=== PATIENT | male | born 1960 | race Caucasian/White ===

== ENCOUNTER 2016-10-16 17:12 | Emergency (ER) | payer OTHER ==
[~2016-10-16] VITALS: Ht 175.3 cm; Wt 90.7 kg
[~2016-10-16 17:12] MED LIST: ASPIRIN CHILDRE81 MG PO; AZITHROMYCIN250 M1 PO; BACTRIM DS 8001 TAB PO; CHILDREN'S ASPI81 M1 PO; CHLORDIAZEPOXID25 M3 PO; CLOTRIMAZOLE AN1 CRE TOP; FISH OIL CONCEN1 SGL PO; FLEXERIL10 MG PO; Fish Oil PO; GABAPENTIN300 MG PO; GABAPENTIN400 M2 PO; GEMFIBROZIL600 MG PO; GOOD SENSE ASP325 MG PO; INDERAL LA 80MG80 MG PO; LIDOCAINE1 EACH TOP; LIPITOR80 MG PO; LISINOPRIL AND1 TA1 PO; LISINOPRIL20 M1 PO; LISINOPRIL20 MG PO; MELOXICAM15 M1 PO; METFORMIN500 MG PO; MOBIC15 MG PO; MOTRIN600 MG PO; MULTI-DAY VITA1 EACH PO; MULTIVITAMIN1 TAB PO; NAPROSYN 500 M500 MG PO; NORCO 325 MG-51 TAB PO; NYSTOP100000 U/G TOP; PANTOPRAZOLE SO40 MG PO; PERCOCET 325 MG1 TA2 PO; PLAVIX 75MG TAB75 MG PO; PRAVASTATIN SOD40 M2 PO; PRAVASTATIN SOD40 MG PO; PRINIVIL 5MG5 MG PO; PROTONIX 40MG T40 MG PO; TAMSULOSIN HYD0.4 MG PO; TESSALON PERLE100 MG PO; TOBRAMYCIN AND D5 ML OPH; TRAMADOL HCL50 M1 PO; TRAMADOL50 MG PO; TYLENOL TAB 32325 MG PO; ULTRAM(MONOGRAP50 MG PO; VICODIN5-300 PO; VITAMIN B COMPL1 CAP PO; VITAMIN C1000 M1 PO; VITAMIN C500 M1 PO; VITAMIN C500 M3 PO; ZITHROMAX Z-PA250 M1 PO; ZOFRAN 4 MG TABL4 MG PO
[2016-10-16] MEDS ORDERED: PANTOPRAZOLE SO40 M1 PO (17:54)
[2016-10-16] MEDS ORDERED: OXYCODONE-ACET1 EACH PO (17:54)
[2016-10-16] MEDS ORDERED: METFORMIN HCL500 M3 PO (17:54)
--- NOTE | 2016-10-16 17:55 | ED CARDIAC/CP/PALPITATIONS ---
History of Present Illness General Chief Complaint: Chest Pain Stated Complaint: CHEST PAIN, RIGHT ARM NUMBNESS Source: patient Exam Limitations: no limitations Vital Signs & Intake/Output Vital Signs & Intake/Output Vital Signs Date Time Temp Pulse Resp B/P B/P Pulse O2 O2 Flow FiO2 Mean Ox Delivery Rate 10/16 2206 97.3 99 18 123/74 96 Room Air 10/16 2036 98.0 84 18 112/62 97 Room Air 10/16 1829 Room Air 10/16 182 88 109/55 10/16 1807 86 20 137/102 98 Room Air 10/16 1807 86 20 135/95 98 Room Air 10/16 1724 98.1 94 20 121/79 98 Room Air Room Air ED Intake and Output 10/17 0000 10/16 1200 Intake Total Output Total Balance Patient 200 lb Weight Weight Reported by Patient Measurement Method Allergies Coded Allergies: Penicillins (HIVES 01/17/16) Reconcile Medications Albuterol Sulfate (Proair Hfa) 90 MCG HFA.AER.AD 2 PUF INH AD PRN RESPIRATORY (Reported) Aspirin (Children's Aspirin) 81 MG TAB.CHEW 1 TAB PO DAILY HEART/BLOOD ( Reported) Lisinopril 20 MG TABLET 1 TAB PO DAILY BP (Reported) Meloxicam 15 MG TABLET 1 TAB PO DAILY PAIN/INFLAMMATION (Reported) Metformin HCl 500 MG TABLET 1 TAB PO BID DM (Reported) Multivitamin (Multi-Day Vitamins) 1 EACH TABLET 1 TAB PO DAILY SUPPLEMENT ( Reported) Naloxone HCl (Narcan) 4 MG/ACTUATION SPRAY 4 MG MARLA AD PRN OPIOID INDUCED RESP. DEPRESSIO (Reported) Oxycodone HCl/Acetaminophen (Oxycodone-Acetaminophen 5-325) 5 MG-325 MG TABLET 1 TAB PO 4XDAILY PRN PAIN (Reported) Pantoprazole Sodium 40 MG TABLET.DR 1 TAB PO BID GI (Reported) Propranolol HCl (Propranolol HCl ER) 80 MG CAP.SA.24H 1 CAP PO DAILY MIGRAINES (Reported) Triage Note: PT TO ED WITH SUDDEN ONSET OF LEFT CHEST PAIN, WEAKNESS AND LIGHT HEADED, PT STATING 3 DRINKS TODAY, AND "STARTED TO SMOKE AGAIN". Triage Nurses Notes Reviewed? yes Onset: Abrupt Duration: minute(s): (45) Timing: single episode today HPI: This is a 55-year-old male with reported history of acute SC at the age of 28, CVA, TIA, EtOH and polysubstance abuse who presents the chief complaint of central chest pain that started 45 minutes ago while he was driving in his truck. He states he feels short of breath and it hurts to breathe. Denies any radiation of the pain. Denies any nausea vomiting or palpitations. He smells of alcohol and admits to drinking 3 drinks earlier prior to driving today. Denies any illicit drug use. He states that he is very depressed and becomes aggressive when asking further questions regarding his chest pain. Patient reports that he follows up with Dr. Jane in the office. He is unclear what the cardiac catheterization showed an when it was done but according to his friend in the room he ever had a stent placed. (DINA WHEATLEY,ANGEL) Past History Travel History Traveled to [place] past 21 day No Medical History Any Pertinent Medical History? see below for history Neurological: CVA, TIA EENT: NONE Cardiovascular: CAD, hypertension, hyperlipidemia Respiratory: bronchitis Gastrointestinal: erosive gastritis Hepatic: NONE Renal: benign prost hyperplasia Musculoskeletal: chronic back pain (herniated disc) Psychiatric: alcohol dependence, substance abuse, history of suicidal ideation CONVERSION DISORDER Endocrine: NONE Blood Disorders: NONE Cancer(s): NONE COOK DESSERT/Reproductive: NONE Other Medical Hx: h/o alcohol and drug abuse History of MRSA: No History of VRE: No History of CDIFF: No Surgical History Surgical History: hernia repair-umbilical, left wrist surgery left elbow surgery right knee surgery Psychosocial History Who do you live with Significant Other Services at Home None What is your primary language Egyptian Tobacco Use: Current Daily Use Daily Tobacco Use Amount/Type: => 5 Cigarettes daily ETOH Use: alcoholic Illicit Drug Use: denies illicit drug use Family History Family History, If Any: MOTHER (Pt was adopted - does not have family hx available.). Hx Contributory? No (DINA WHEATLEY,ANGEL) Review of Systems Review of Systems Constitutional: Denies: chills, fever. EENTM: Reports: no symptoms. Respiratory: Reports: short of breath. Cardiovascular: Reports: chest pain. GI: Denies: abdominal pain. Genitourinary: Denies: discharge, dysuria, frequency, hematuria. Musculoskeletal: Denies: back pain. Skin: Reports: no symptoms. Neurological/Psychological: Reports: no symptoms. Hematologic/Endocrine: Denies: bruising, bleeding, polyuria, polydipsia. Immunologic/Allergic: Denies: splenectomy. All Other Systems: Reviewed and Negative (ANGEL ARROYO MD) Physical Exam Physical Exam General Appearance: well developed/nourished, alert, awake, anxious, mild distress, obese Head: atraumatic, normal appearance Eyes: Bilateral: normal appearance, PERRL, EOMI. Ears, Nose, Throat: normal pharynx, hearing grossly normal Neck: normal inspection, supple, full range of motion Respiratory: normal breath sounds, chest non-tender, no respiratory distress Cardiovascular: regular rate/rhythm Peripheral Pulses: 2+ radial (R), 2+ radial (L) Gastrointestinal: normal bowel sounds, soft, non-tender Neurologic/Psych: no motor/sensory deficits, awake, alert, oriented x 3 Skin: intact, normal color, warm/dry Core Measures ACS in differential dx? Yes ASA ordered for poss ACS? PRIOR TO ARRIVAL Severe Sepsis Present: No Septic Shock Present: No (ANGEL ARROYO MD) Progress Differential Diagnosis: AMI, aortic dissection, costochondritis, musculoskeletal pain, myocarditis, pericarditis, pneumonia, pneumothorax, pulmonary embolism, unstable angina Plan of Care: Orders Procedure Date/time Status TROPONIN LEVEL 10/16 2114 Complete EKG 10/16 2114 Active Add-on Test (ER Only) 10/16 180 Active Telemetry/Bowl Turner 10/16 1809 Active URINE DRUG SCREEN FOR ER ONLY 10/16 1746 Complete URINALYSIS 10/16 1746 Complete PARTIAL THROMBOPLASTIN TIME 10/16 1745 Complete PROTHROMBIN TIME 10/16 1745 Complete ETHANOL 10/16 1745 Complete D-DIMER 10/16 1745 Complete TROPONIN LEVEL 10/16 1728 Complete COMPREHENSIVE METABOLIC PANEL 10/16 1728 Complete CBC WITHOUT DIFFERENTIAL 10/16 1728 Complete EKG 10/16 1715 Active Laboratory Tests 10/16/16 2040: Troponin I < 0.01 10/16/16 1750: Urine Opiates Screen < 100.00, Methadone Screen < 40, Barbiturate Screen < 60, Ur Phencyclidine Scrn < 6.00, Amphetamines Screen 122, U Benzodiazepines Scrn < 85, Urine Cocaine Screen < 50, Urine Cannabis Screen < 5.00, Urine Color STRAW, Urine Clarity CLEAR, Urine pH 6.5, Ur Specific [place] <= 1.005, Urine Protein NEG, Urine Ketones NEG, Urine Nitrite NEG, Urine Bilirubin NEG, Urine Urobilinogen 0.2, Ur Leukocyte Esterase NEG, Ur Microscopic EXAM NOT REQUIRED, Urine Hemoglobin NEG, Urine Glucose NEG 10/16/16 1745: Anion Gap 15, Estimated GFR > 60, BUN/Creatinine Ratio 15.0, Glucose 103 H, Calcium 9.3, Total Bilirubin 0.4, AST 44, ALT 112 H, Alkaline Phosphatase 73, Troponin I < 0.01, Total Protein 7.3, Albumin 4.3, Globulin 3.0, Albumin/ Globulin Ratio 1.4, PT 8.8 L, INR 0.84 L, APTT < 20 L, D-Dimer 225, CBC w Diff NO MAN DIFF REQ, RBC 4.70, MCV 94.0, MCH 31.4 H, RDW 14.4, MPV 8.4, Gran % 54.1, Lymphocytes % 35.5, Monocytes % 7.7, Eosinophils % 2.3, Basophils % 0.4, Absolute Granulocytes 5.1, Absolute Lymphocytes 3.3, Absolute Monocytes 0.7 H, Absolute Eosinophils 0.2, Absolute Basophils 0, PUBS MCHC 33.4, Serum Alcohol 206.0 10/16/16 1730: Serum Alcohol Cancelled Diagnostic Imaging: Viewed by Me: Radiology Read. Discussed w/RAD: Radiology Read. Initial ED EKG: NSR Rhythm Strip: normal sinus rhythm Hand-Off Endorsed To: MARCO VALDEZ DO Endorsed Time: 1899 Pending: labs (ANGEL ARROYO MD) Departure Departure Disposition: STILL A PATIENT Condition: Stable Clinical Impression Primary Impression: Chest pain Referrals: CHEIKH FLANAGAN MD (PCP/Family) Departure Forms: Customer Survey General Discharge Information (ANGEL ARROYO MD) Departure Comments 10/16/16 10:04 PM The patient has no chest pain in the emergency department. He is awake alert oriented 3 and not ataxic. He has insight into his situation. He consented for a second set of enzymes and his repeat troponin and EKG were unchanged. However he did have pain that was consistent with his prior SC. He was advised to stay for a third set. He refused to do so. He signed out AGAINST MEDICAL ADVICE. He was told not to drive a motor vehicle today. He understood. He will follow-up with Dr. Jane on Wednesday. He will return to the emergency department if worse. He did sign out AGAINST MEDICAL ADVICE (MARCO VALDEZ DO) Critical Care Note Critical Care Note Critical Care Time: non-applicable (DINA WHEATLEY,ANGEL)
[2016-10-16] MEDS ORDERED: PROPRANOLOL HCL80 M2 PO (17:56)
[2016-10-16] MEDS ORDERED: PROAIR HFA8.5 GM INH (17:56)
[2016-10-16] MEDS ORDERED: NARCAN4 MG NAS (17:58)
[2016-10-16 18:06] LABS: ABSOLUTE BASOPHIL COUNT 0 /CUMM (0.0-0.2); ABSOLUTE EOSINOPHIL COUNT 0.2 /CUMM (0.0-0.7); ABSOLUTE GRANULOCYTE CT 5.1 /CUMM (1.4-6.5); ABSOLUTE LYMPH COUNT 3.3 /CUMM (1.2-3.4); ABSOLUTE MONOCYTE COUNT 0.7 /CUMM (0.10-0.60); BASOPHIL % 0.4 % (0.0-2.0); EOSINOPHIL % 2.3 % (0-5); GRANULOCYTE % 54.1 % (42.2-75.2); HEMATOCRIT 44.2 % (42-52); MEAN CORPUSCULAR HGB 31.4 PG (27.0-31.0); MEAN CORPUSCULAR HGB CONC 33.4 G/DL (33.0-37.0); MEAN PLATELET VOLUME 8.4 FL (7.4-10.4); PLATELET COUNT 289 /CUMM (130-400); RBC DISTRIBUTION WIDTH 14.4 % (11.5-14.5); WHITE BLOOD CELL COUNT 9.4 /CUMM (4.8-10.8)
[2016-10-16 18:40] LABS: PT 8.8 SEC (9.4-12.5); PTT < 20 SEC (25-37)
[2016-10-16 22:07] VITALS: BP 123/74
== END 2016-10-16 22:13 | disposition left against medical advice (07) ==
LOC: ERH 17:12
PROVIDERS: Emergency Medicine
DX: R07.89 Other chest pain (principal)
CPT/HCPCS: 80307; 81003; 93005; 93010; 96374; 96375; G0480; J1885

== ENCOUNTER 2017-01-06 00:40 | Emergency (ER) | payer OTHER ==
[~2017-01-06] VITALS: Ht 177.8 cm; Wt 113.4 kg
[~2017-01-06 00:40] MED LIST changes: +METFORMIN HCL500 M3 PO; +NARCAN4 MG NAS; +OXYCODONE-ACET1 EACH PO; +PANTOPRAZOLE SO40 M1 PO; +PROAIR HFA8.5 GM INH; +PROPRANOLOL HCL80 M2 PO
[2017-01-06 00:43] VITALS: BP 145/83
--- NOTE | 2017-01-06 01:05 | ED CARDIAC/CP/PALPITATIONS ---
History of Present Illness General Chief Complaint: ETOH/Drug Related Complaint Stated Complaint: ETOH AND COMBATITIVE Source: patient Exam Limitations: intoxication Vital Signs & Intake/Output Vital Signs & Intake/Output Vital Signs Date Time Temp Pulse Resp B/P B/P Pulse O2 O2 Flow FiO2 Mean Ox Delivery Rate 01/06 0043 97.1 101 20 145/83 97 Room Air Allergies Coded Allergies: Penicillins (HIVES 01/17/16) Reconcile Medications Albuterol Sulfate (Proair Hfa) 90 MCG HFA.AER.AD 2 PUF INH AD PRN RESPIRATORY (Reported) Aspirin (Children's Aspirin) 81 MG TAB.CHEW 1 TAB PO DAILY HEART/BLOOD ( Reported) Lisinopril 20 MG TABLET 1 TAB PO DAILY BP (Reported) Meloxicam 15 MG TABLET 1 TAB PO DAILY PAIN/INFLAMMATION (Reported) Metformin HCl 500 MG TABLET 1 TAB PO BID DM (Reported) Multivitamin (Multi-Day Vitamins) 1 EACH TABLET 1 TAB PO DAILY SUPPLEMENT ( Reported) Naloxone HCl (Narcan) 4 MG/ACTUATION SPRAY 4 MG MARLA AD PRN OPIOID INDUCED RESP. DEPRESSIO (Reported) Oxycodone HCl/Acetaminophen (Oxycodone-Acetaminophen 5-325) 5 MG-325 MG TABLET 1 TAB PO 4XDAILY PRN PAIN (Reported) Pantoprazole Sodium 40 MG TABLET.DR 1 TAB PO BID GI (Reported) Propranolol HCl (Propranolol HCl ER) 80 MG CAP.SA.24H 1 CAP PO DAILY MIGRAINES (Reported) Triage Note: PT BIBA C/O REPRODUCIBLE CHEST WALL PAIN. PER EMS PT HAS BEEN DRINKING TONIGHT, HAVING PSEUDO SYNCOPAL EPISODES, AND COMBATIVE. PT ARRIVES ALERT, AND AGITATED. SECURITY AT BEDSIDE FOR WANDING. Triage Nurses Notes Reviewed? 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 Pain gets worse with deep inspiration and movement. History is limited given the patient's reluctance to provide history. Past History Travel History Traveled to [place] past 21 day No Medical History Any Pertinent Medical History? 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 Hx Contributory? No Review of Systems Review of Systems Constitutional: Reports: no symptoms. EENTM: Reports: no symptoms. Respiratory: Reports: no symptoms. Cardiovascular: Reports: see HPI. GI: Reports: no symptoms. Genitourinary: Reports: no symptoms. Musculoskeletal: Reports: no symptoms. Skin: Reports: no symptoms. Neurological/Psychological: Reports: no symptoms. Hematologic/Endocrine: Reports: no symptoms. Immunologic/Allergic: Reports: no symptoms. All Other Systems: Reviewed and Negative Physical Exam Physical Exam Cardiovascular: SEE BELOW Comments: Gen.: Well-nourished, well-developed, no acute respiratory distress. Appears clinically intoxicated. Head: Normocephalic, atraumatic. Eyes: Normal inspection bilaterally, PERRLA, EOMI Ears: Normal inspection bilaterally Nose: Normal inspection Throat/mouth : Moist mucosa Neck: Supple, full range of motion, no goiter Heart: Regular rate and rhythm, no murmurs rubs or gallops Lungs: Clear to auscultation bilaterally with normal air entry, occasional loose sounding cough Chest: Nontender Back: Normal range of motion Abdomen: Soft, nontender, nondistended, normal bowel sounds Extremities: Normal range of motion grossly, equal radial pulses, no cyanosis clubbing or edema Neurologic: Cranial nerves grossly intact, speech is clear Skin: warm and dry, mild sunburn of the upper chest and arms Psychiatric: Calm, cooperative, no apparent delusions or hallucinations Core Measures ACS in differential dx? No Severe Sepsis Present: No Septic Shock Present: No Progress Differential Diagnosis: acid reflux, musculoskeletal pain, atypical chest pain, gastritis Plan of Care: Orders Procedure Date/time Status Telemetry/Dust Brush Assembler 01/06 105 Active TROPONIN LEVEL 01/06 105 Complete MAGNESIUM 01/06 105 Complete ETHANOL 07/12 0105 Complete CBC WITHOUT DIFFERENTIAL 01/06 105 Complete BASIC METABOLIC PANEL 01/06 105 Complete EKG 01/06 004 Active Laboratory Tests 01/06/17 0126: Anion Gap 15, Estimated GFR > 60, BUN/Creatinine Ratio 15.7, Glucose 105 H, Calcium 9.4, Magnesium 1.7, Troponin I < 0.01, CBC w Diff NO MAN DIFF REQ, RBC 4.49 L, MCV 98.2 H, MCH 32.6 H, RDW 14.9 H, MPV 7.3 L, Gran % 46.1, Lymphocytes % 41.4, Monocytes % 9.3, Eosinophils % 2.5, Basophils % 0.7, Absolute Granulocytes 4.0, Absolute Lymphocytes 3.6 H, Absolute Monocytes 0.8 H, Absolute Eosinophils 0.2, Absolute Basophils 0.1, PUBS MCHC 33.2, Serum Alcohol 256.0 CXR Impression: PATIENT: SIERRA THOMPSON PRESENT AGE: 56 PATIENT ACCOUNT NO: [id number] : 60 LOCATION: [facility] ORDERING PHYSICIAN: MARCO LEONARDO MD SERVICE DATE: 01/06/17 EXAM TYPE: RAD - XRY-CHEST XRAY, PA AND LATERAL EXAMINATION: XR CHEST CLINICAL INFORMATION: Cough , chest pain, dyspnea. COMPARISON: 03/15/2016 TECHNIQUE: 2 views of the chest were obtained. FINDINGS: The lungs are well expanded. There is no focal consolidation, edema, or effusion. No pneumothorax. The cardiomediastinal silhouette is within normal limits. No acute osseous abnormality. DISH. IMPRESSION: No acute pulmonary findings. DICTATED BY: SUSAN LÓPEZ MD DATE /TIME DICTATED:01/06/17536 LITHOGRAPH PRESS FEEDER:SINA DATE/TIME TRANSCRIBED: 01/06/17536 CONFIDENTIAL, DO NOT COPY WITHOUT APPROPRIATE AUTHORIZATION. < Electronically signed in Other Vendor System> SIGNED BY: SUSAN LÓPEZ MD 01/06/17 0546 Initial ED EKG: NSR, no ST T wave changes Prior EKG: unchanged Comments: 01/06/2017 6:26:09 AM patient has slept during the majority of his emergency department stay. Given the description of the patient's pain and the EKG and troponin, I do not feel this is an acute coronary syndrome or unstable angina. I feel likely stable for outpatient management. His primary care physician and/ or housekeeping staff. Departure Departure Disposition: HOME OR SELF CARE Condition: Stable Clinical Impression Primary Impression: Chest pain Qualifiers: Chest pain type: unspecified Qualified Code: R07.9 - Chest pain, unspecified Secondary Impressions: Alcoholic intoxication Qualifiers: Complication of substance-induced condition: uncomplicated Qualified Code: F10.920 - Alcohol use, unspecified with intoxication, uncomplicated Referrals: CHEIKH FLANAGAN MD (PCP/Family) Additional Instructions: Try to cut down on your alcohol use. Follow-up with your primary care doctor or housekeeping staff this week for reevaluation. Consider an alcohol detox program. Return if any concerns or sudden worsening. Departure Forms: Customer Survey General Discharge Information Critical Care Note Critical Care Note Critical Care Time: non-applicable
[2017-01-06 01:35] LABS: ABSOLUTE BASOPHIL COUNT 0.1 /CUMM (0.0-0.2); ABSOLUTE EOSINOPHIL COUNT 0.2 /CUMM (0.0-0.7); ABSOLUTE LYMPH COUNT 3.6 /CUMM (1.2-3.4); ABSOLUTE MONOCYTE COUNT 0.8 /CUMM (0.10-0.60); BASOPHIL % 0.7 % (0.0-2.0); EOSINOPHIL % 2.5 % (0-5); GRANULOCYTE % 46.1 % (42.2-75.2); HEMATOCRIT 44.1 % (42-52); MEAN CORPUSCULAR HGB 32.6 PG (27.0-31.0); MEAN CORPUSCULAR HGB CONC 33.2 G/DL (33.0-37.0); MEAN CORPUSCULAR VOLUME 98.2 FL (80.0-94.0); MEAN PLATELET VOLUME 7.3 FL (7.4-10.4); PLATELET COUNT 307 /CUMM (130-400); RBC DISTRIBUTION WIDTH 14.9 % (11.5-14.5); RED BLOOD CELL CT 4.49 /CUMM (4.70-6.10); WHITE BLOOD CELL COUNT 8.8 /CUMM (4.8-10.8)
--- NOTE | 2017-01-06 05:46 | RADIOLOGY REPORT ---
EXAMINATION: XR CHEST CLINICAL INFORMATION: Cough, chest pain, dyspnea. COMPARISON: 03/15/2016 TECHNIQUE: 2 views of the chest were obtained. FINDINGS: The lungs are well expanded. There is no focal consolidation, edema, or effusion. No pneumothorax. The cardiomediastinal silhouette is within normal limits. No acute osseous abnormality. DISH. IMPRESSION: No acute pulmonary findings.
== END 2017-01-06 06:42 ==
LOC: ERH 00:40
PROVIDERS: Emergency Medicine
DX: R07.89 Other chest pain (principal); F10.129 Alcohol abuse with intoxication, unspecified
CPT/HCPCS: 93005; 93010; G0480

== ENCOUNTER 2017-10-29 18:37 | Emergency (ER) | payer OTHER ==
[~2017-10-29] VITALS: Ht 182.9 cm; Wt 113.4 kg
[~2017-10-29 18:37] MED LIST changes: +ATORVASTATIN CA40 M1 PO; +FOLIC ACID1 M1 PO; +GABAPENTIN300 M2 PO; +IBUPROFEN600 M1 PO; -MULTI-DAY VITA1 EACH PO; +MULTI-VITAMIN1 EACH PO; +PRAVACHOL40 M1 PO; +ULTRAM50 M1 PO; +VITAMIN B-1100 MG PO; +VITAMIN B-12500 MC2 PO; +VITAMIN C500 M6 PO
[2017-10-29 18:52] LABS: ABSOLUTE BASOPHIL COUNT 0.1 /CUMM (0.0-0.2); ABSOLUTE EOSINOPHIL COUNT 0.5 /CUMM (0.0-0.7); ABSOLUTE GRANULOCYTE CT 6.2 /CUMM (1.4-6.5); ABSOLUTE LYMPH COUNT 2.9 /CUMM (1.2-3.4); ABSOLUTE MONOCYTE COUNT 0.8 /CUMM (0.10-0.60); BASOPHIL % 0.9 % (0.0-2.0); EOSINOPHIL % 4.4 % (0-5); GRANULOCYTE % 58.8 % (42.2-75.2); HEMATOCRIT 39.8 % (42-52); MEAN CORPUSCULAR HGB 33.4 PG (27.0-31.0); MEAN CORPUSCULAR HGB CONC 33.4 G/DL (33.0-37.0); MEAN PLATELET VOLUME 7.9 FL (7.4-10.4); PLATELET COUNT 266 /CUMM (130-400); RBC DISTRIBUTION WIDTH 13.7 % (11.5-14.5); RED BLOOD CELL CT 3.98 /CUMM (4.70-6.10); WHITE BLOOD CELL COUNT 10.5 /CUMM (4.8-10.8)
[2017-10-29 19:17] LABS: PT 10.4 SEC (9.4-12.5); PTT 24 SEC (25-37)
--- NOTE | 2017-10-29 19:21 | ED CARDIAC/CP/PALPITATIONS ---
See Addendum History of Present Illness General Chief Complaint: General Adult Stated Complaint: PULLED OUT OF CAR, ?SEIZURE, UNRESPONSIVE Source: patient, old records, friend Exam Limitations: intoxication Vital Signs & Intake/Output Vital Signs & Intake/Output Vital Signs Date Time Temp Pulse Resp B/P B/P Pulse O2 O2 Flow FiO2 Mean Ox Delivery Rate 10/30 2227 98.1 82 18 102/63 96 Room Air 10/29 2106 98.0 93 16 100/60 96 Room Air 10/29 2004 97.7 97 16 90/50 95 Room Air 10/29 1915 97.0 100 16 84/60 94 Room Air 10/29 1900 96.5 106 16 78/50 98 Room Air ED Intake and Output 10/30 0000 10/29 1200 Intake Total 1000 Output Total Balance 1000 Intake, IV 1000 Patient 250 lb Weight Allergies Coded Allergies: Penicillins (HIVES 01/17/16) Reconcile Medications Ascorbate Calcium (Vitamin C) 500 MG TABLET 1 TAB PO DAILY SUPPLEMENT ( Reported) Aspirin (Children's Aspirin) 81 MG TAB.CHEW 1 TAB PO DAILY HEART/BLOOD ( Reported) Cyanocobalamin (Vitamin B-12) (Vitamin B-12) 500 MCG TABLET 1 TAB PO DAILY SUPPLEMENT (Reported) Folic Acid 1 MG TABLET 1 TAB PO DAILY SUPPLEMENT (Reported) Gabapentin 400 MG CAPSULE 1 CAP PO TID SEIZURES/MOOD/NERVE PAIN (Reported) Lisinopril 20 MG TABLET 1 TAB PO DAILY BP (Reported) Metformin HCl 500 MG TABLET 1 TAB PO BID DM (Reported) Multivitamin (Multi-Vitamin Daily) 1 EACH TABLET 1 TAB PO DAILY SUPPLEMENT ( Reported) Pantoprazole Sodium 40 MG TABLET.DR 1 TAB PO BID GI (Reported) Pravastatin Sodium (Pravachol) 40 MG TABLET 1 TAB PO DAILY CHOLESTEROL ( Reported) Propranolol HCl (Propranolol HCl ER) 80 MG CAP.SA.24H 1 CAP PO DAILY MIGRAINES (Reported) Triage Note: BIBA BY CAR FROM HOME, WITH FRIEND, UNRESPONSIVE, LIFTED OUT OF CAR, UNESPONSIVE ON ARRIVAL, BUT CURRENTLY OPENING EYES. PMH: SEIZURES, CVA. Triage Nurses Notes Reviewed? yes Onset: Abrupt Duration: minute(s): Timing: single episode today Quality/Severity: moderate HPI: 56yo male with hx of CVA/TIA, CAD, HTN, seizures, alcoholism presents to ED following unresponsive episode. Patient arrived in car with his friend, initially not responding however then openned his eyes. Patient's friend states that they were out at a restaurant when he began to complain of chest pain and clutched his chest. She states that he was drooling and acting odd so she trudi him here. Patient reports substernal chest pain at this time. HPI is limited d/t to patient's intoxication. Patient admits to drinking alcohol today however does not know how much. He also reports numbness of left arm for the past "few days". He denies drug use, fall or head trauma, headache. (Karley Carter) Past History Travel History Traveled to [place] past 21 day No Medical History Any Pertinent Medical History? see below for history Neurological: CVA, TIA EENT: NONE Cardiovascular: CAD, hypertension, hyperlipidemia Respiratory: bronchitis Gastrointestinal: erosive gastritis Hepatic: NONE Renal: benign prost hyperplasia Musculoskeletal: chronic back pain (herniated disc) Psychiatric: alcohol dependence, substance abuse, history of suicidal ideation CONVERSION DISORDER Endocrine: NONE Blood Disorders: NONE Cancer(s): NONE MANAGER KNOWLEDGE/Reproductive: NONE Other Medical Hx: h/o alcohol and drug abuse History of MRSA: No History of VRE: No History of CDIFF: No Surgical History Surgical History: hernia repair-umbilical, left wrist surgery left elbow surgery right knee surgery Psychosocial History Who do you live with Significant Other Services at Home None What is your primary language Maltese Tobacco Use: UN ETOH Use: occasional use Family History Family History, If Any: MOTHER (Pt was adopted - does not have family hx available.). Hx Contributory? No (Karley Carter) Review of Systems Review of Systems Constitutional: Reports: see HPI. EENTM: Reports: no symptoms. Respiratory: Reports: no symptoms. Cardiovascular: Reports: see HPI. GI: Reports: no symptoms. Genitourinary: Reports: no symptoms. Musculoskeletal: Reports: no symptoms. Skin: Reports: no symptoms. Neurological/Psychological: Reports: see HPI. Hematologic/Endocrine: Reports: no symptoms. Immunologic/Allergic: Reports: no symptoms. All Other Systems: Reviewed and Negative (Karley Carter) Physical Exam Physical Exam General Appearance: well developed/nourished, awake, intoxicated Head: atraumatic, normal appearance Eyes: Bilateral: normal appearance, PERRL, EOMI. Ears, Nose, Throat: normal pharynx, hearing grossly normal Neck: normal inspection, supple, full range of motion Respiratory: normal breath sounds, chest non-tender, no respiratory distress, lungs clear Cardiovascular: normal peripheral pulses, tachycardia Peripheral Pulses: 2+ radial (R), 2+ radial (L) Gastrointestinal: normal bowel sounds, soft, non-tender, no organomegaly Back: normal inspection, normal range of motion Neurologic/Psych: awake, alert, oriented x 3, neurologic exam is limited at this time d/t patient intoxication. facial symmetry is intact, no facial droop. PAtient reports diminished sensation to left arm. Skin: intact, normal color, warm/dry Core Measures ACS in differential dx? Yes CVA/TIA Diagnosis No Sepsis Present: No Sepsis Focused Exam Completed? No (Alicia OLMOS,Karley Renteria) Progress Differential Diagnosis: AMI, atrial fibrillation, CHF/pulm edema, costochondritis, myocarditis, pericarditis, pneumonia, pneumothorax, pulmonary embolism, unstable angina, ALCOHOL INTOXICATION, DRUG INTOXICATION, CVA/TIA Plan of Care: Orders Procedure Date/time Status TROPONIN LEVEL 10/29 2144 Complete EKG 10/29 2144 Active Telemetry/Compliance Tester 10/29 2140 Active Add-on Test (ER Only) 10/29 1854 Active PARTIAL THROMBOPLASTIN TIME 10/29 1844 Complete PROTHROMBIN TIME 10/29 1844 Complete PROLACTIN 10/29 1844 Complete URINE DRUG SCREEN FOR ER ONLY 10/29 1840 Complete URINALYSIS 10/29 1840 Complete ACETOMINOPHEN 10/29 1840 Complete TROPONIN LEVEL 10/29 1840 Complete SALICYLATE 10/29 1840 Complete MAGNESIUM 10/29 1840 Complete ETHANOL 10/29 1840 Complete COMPREHENSIVE METABOLIC PANEL 10/29 1840 Complete CBC WITHOUT DIFFERENTIAL 10/29 1840 Complete EKG 10/29 1840 Active Laboratory Tests 10/29/17 2200: Troponin I < 0.01 10/29/17 1850: Urine Opiates Screen < 100, Methadone Screen < 40, Barbiturate Screen < 60, Ur Phencyclidine Scrn < 6.00, Amphetamines Screen < 100, U Benzodiazepines Scrn < 85, Urine Cocaine Screen < 50, Urine Cannabis Screen 13.00, Urine Color YEL, Urine Clarity CLEAR, Urine pH 6.0, Ur Specific Hedley <= 1.005, Urine Protein NEG, Urine Ketones NEG, Urine Nitrite NEG, Urine Bilirubin NEG, Urine Urobilinogen 0.2, Ur Leukocyte Esterase SMALL H, Ur Microscopic SEDIMENT EXAMINED, Urine RBC 1-3, Urine Hemoglobin SMALL H, Urine Glucose NEG 10/29/171844: Anion Gap 17 H, Estimated GFR > 60, BUN/Creatinine Ratio 14.0, Glucose 123 H, Calcium 8.9, Magnesium 1.6, Total Bilirubin 0.7, AST 32, ALT 48, Alkaline Phosphatase 64, Troponin I < 0.01, Total Protein 6.9, Albumin 4.3, Globulin 2.6, Albumin/Globulin Ratio 1.7, Prolactin 18.8 H, PT 10.4, INR 0.95, APTT 24 L, CBC w Diff NO MAN DIFF REQ, RBC 3.98 L, MCV 100.0 H, MCH 33.4 H, MCHC 33.4, RDW 13.7, MPV 7.9, Gran % 58.8, Lymphocytes % 27.8, Monocytes % 8.1, Eosinophils % 4.4, Basophils % 0.9, Absolute Granulocytes 6.2, Absolute Lymphocytes 2.9, Absolute Monocytes 0.8 H, Absolute Eosinophils 0.5, Absolute Basophils 0.1, Salicylates < 1.0, Acetaminophen < 10.0 L, Serum Alcohol 320.0 Patient hypotensive, receiving IV fluids. On second liter. Patient's blood alcohol level is currently 320. HPI exam is limited due to his current intoxication. Head CT scan is within normal limits, no acute abnormality. Patient's EKG is in sinus tachycardia without acute changes. Troponin enzyme is negative. Will obtain repeat EKG and troponin for further evaluation of acute coronary syndrome. Chest x-ray is within normal limits. Repeat EKG is unchanged from prior study. Repeat troponin enzyme is negative. The patient was signed out to Dr. Washington pending clinical sobriety. Diagnostic Imaging: Viewed by Me: Radiology Read, CT Scan. Discussed w/RAD: Radiology Read, CT Scan. Radiology Impression: PATIENT: SIERRA THOMPSON PRESENT AGE: 56 PATIENT ACCOUNT NO: [id number] : 60 LOCATION: [facility] ORDERING PHYSICIAN: Karley OLMOS SERVICE DATE: 10/29/17 EXAM TYPE: CAT - CT HEAD WO IV CONTRAST EXAMINATION: CT HEAD WITHOUT CONTRAST CLINICAL INFORMATION: Evaluate for intracranial hemorrhage. Altered mental status. Left upper extremity numbness. COMPARISON: CT head 04/23/2017. TECHNIQUE : Contiguous axial imaging was performed from the skull base to vertex without intravenous administration of contrast. DLP: 628.26 mGy-cm FINDINGS: There is no acute intracranial hemorrhage or abnormal extra-axial collection. No intracranial mass effect or midline shift. Lateral and third ventricles are normal. No hydrocephalus. Flores-white matter differentiation is preserved and there is no evidence of acute territorial infarct. The calvarium and skull base are intact. Mastoid air cells and middle ear cavities are well aerated. Visualized paranasal sinuses are well-aerated with exception of a retention cyst within the right maxillary sinus. IMPRESSION: Unremarkable CT scan of the head. No evidence of acute territorial infarct or hemorrhage. DICTATED BY: Joaquin Cortez MD DATE/TIME DICTATED:10/29/172056 WARP TRUCKER:SINA DATE/ TIME TRANSCRIBED:10/29/172056 CONFIDENTIAL, DO NOT COPY WITHOUT APPROPRIATE AUTHORIZATION. <Electronically signed in Other Vendor System> SIGNED BY: Joaquin Cortez MD 10/29/172100 CXR Impression: PATIENT: SIERRA THOMPSON PRESENT AGE: 56 PATIENT ACCOUNT NO: [id number] : 60 LOCATION: [facility] ORDERING PHYSICIAN: Karley OLMOS SERVICE DATE: 10/29/17 EXAM TYPE: RAD - XRY-PORTABLE CHEST XRAY EXAMINATION: XR PORTABLE CHEST CLINICAL INFORMATION: Chest pain COMPARISON: 08/20/2017 TECHNIQUE: Portable frontal view of the chest was obtained. FINDINGS: Cardiac leads overlie the chest. The lungs are well expanded. There is no focal consolidation, edema, or effusion. No pneumothorax. The cardiomediastinal silhouette is within normal limits. No acute osseous abnormality. IMPRESSION: No acute pulmonary findings. DICTATED BY: Lars Ortiz MD DATE/TIME DICTATED:10/29/172158 WARP TRUCKER:SINA DATE/ TIME TRANSCRIBED:10/29/172158 CONFIDENTIAL, DO NOT COPY WITHOUT APPROPRIATE AUTHORIZATION. <Electronically signed in Other Vendor System> SIGNED BY: Lars Ortiz MD 10/29/172202 Initial ED EKG: SINUS TACHYCARDIA @104BPM, NONSPECIFIC ST CHANGES Prior EKG: unchanged (08/21/17) Repeat EKG: unchanged Hand-Off Endorsed To: Felix WHEATLEY,Usman Cardenas Endorsed Time: 2300 Pending: other (CLINICAL SOBRIETY) (Karley Carter) Departure Departure Disposition: STILL A PATIENT Condition: Stable Clinical Impression Primary Impression: Chest pain Qualifiers: Chest pain type: unspecified Qualified Code: R07.9 - Chest pain, unspecified Secondary Impressions: Alcohol intoxication Qualifiers: Complication of substance-induced condition: uncomplicated Qualified Code: F10.920 - Alcohol use, unspecified with intoxication, uncomplicated Referrals: Claudia Whipple APRN (PCP/Family) Departure Forms: Customer Survey General Discharge Information (Karley Carter) PA/[employer] Co-Sign Statement Statement: ED Attending supervision documentation- [] I saw and evaluated the patient. I have also reviewed all the pertinent lab results and diagnostic results. I agree with the findings and the plan of care as documented in the PA's/[employer]'s documentation. [x] I have reviewed the ED Record and agree with the PA's/[employer]'s documentation. [] Additions or exceptions (if any) to the PAs/[employer]'s note and plan are summarized below: [] (Felix WHEATLEY,Usman Cardenas) Critical Care Note Critical Care Note Critical Care Time: non-applicable (Karley Carter)
--- NOTE | 2017-10-29 21:01 | CT SCAN REPORT ---
EXAMINATION: CT HEAD WITHOUT CONTRAST CLINICAL INFORMATION: Evaluate for intracranial hemorrhage. Altered mental status. Left upper extremity numbness. COMPARISON: CT head 04/23/2017. TECHNIQUE: Contiguous axial imaging was performed from the skull base to vertex without intravenous administration of contrast. DLP: 628.26 mGy-cm FINDINGS: There is no acute intracranial hemorrhage or abnormal extra-axial collection. No intracranial mass effect or midline shift. Lateral and third ventricles are normal. No hydrocephalus. Flores-white matter differentiation is preserved and there is no evidence of acute territorial infarct. The calvarium and skull base are intact. Mastoid air cells and middle ear cavities are well aerated. Visualized paranasal sinuses are well-aerated with exception of a retention cyst within the right maxillary sinus. IMPRESSION: Unremarkable CT scan of the head. No evidence of acute territorial infarct or hemorrhage.
--- NOTE | 2017-10-29 22:03 | RADIOLOGY REPORT ---
EXAMINATION: XR PORTABLE CHEST CLINICAL INFORMATION: Chest pain COMPARISON: 08/20/2017 TECHNIQUE: Portable frontal view of the chest was obtained. FINDINGS: Cardiac leads overlie the chest. The lungs are well expanded. There is no focal consolidation, edema, or effusion. No pneumothorax. The cardiomediastinal silhouette is within normal limits. No acute osseous abnormality. IMPRESSION: No acute pulmonary findings.
[2017-10-30 02:39] VITALS: BP 108/69
== END 2017-10-30 03:43 | disposition short-term general hospital (02) ==
LOC: ERH 18:37
PROVIDERS: Physician Assistant
DX: R07.9 Chest pain, unspecified (principal); F10.129 Alcohol abuse with intoxication, unspecified; H53.8 Other visual disturbances; I10 Essential (primary) hypertension
CPT/HCPCS: 71045; 80307; 81001; 93005; 93010; 96361; 96374; 99291; G0480; J1885

== ENCOUNTER 2017-12-24 19:41 | Emergency (ER) | payer OTHER ==
--- NOTE | 2017-12-24 19:48 | ED AMS/SEIZURE/WEAK/DIZZY ---
History of Present Illness General Chief Complaint: Seizure Stated Complaint: POSSIBLE SEIZURE Source: patient, EMS Exam Limitations: no limitations Vital Signs & Intake/Output Vital Signs & Intake/Output Vital Signs Date Time Temp Pulse Resp B/P B/P Pulse O2 O2 Flow FiO2 Mean Ox Delivery Rate 12/246 98.2 96 18 126/71 99 Room Air 12/24 2001 Room Air 12/247 97.7 100 20 117/72 97 Room Air ED Intake and Output 12/25 0000 12/24 1200 Intake Total 1000 Output Total Balance 1000 Intake, IV 1000 Allergies Coded Allergies: Penicillins (HIVES 01/17/16) Reconcile Medications Ascorbate Calcium (Vitamin C) 500 MG TABLET 1 TAB PO DAILY SUPPLEMENT ( Reported) Aspirin (Children's Aspirin) 81 MG TAB.CHEW 1 TAB PO DAILY HEART/BLOOD ( Reported) Cyanocobalamin (Vitamin B-12) (Vitamin B-12) 500 MCG TABLET 1 TAB PO DAILY SUPPLEMENT (Reported) Folic Acid 1 MG TABLET 1 TAB PO DAILY SUPPLEMENT (Reported) Gabapentin 400 MG CAPSULE 1 CAP PO TID SEIZURES/MOOD/NERVE PAIN (Reported) Lisinopril 20 MG TABLET 1 TAB PO DAILY BP (Reported) Metformin HCl 500 MG TABLET 1 TAB PO BID DM (Reported) Multivitamin (Multi-Vitamin Daily) 1 EACH TABLET 1 TAB PO DAILY SUPPLEMENT ( Reported) Pantoprazole Sodium 40 MG TABLET.DR 1 TAB PO BID GI (Reported) Pravastatin Sodium (Pravachol) 40 MG TABLET 1 TAB PO DAILY CHOLESTEROL ( Reported) Propranolol HCl (Propranolol HCl ER) 80 MG CAP.SA.24H 1 CAP PO DAILY MIGRAINES (Reported) Triage Nurses Notes Reviewed? yes Onset: Abrupt Duration: minute(s): Timing: recent history Injury Environment: restaurant Severity: moderate Modifying Factors: Improves With: rest. Associated Symptoms: "Now I'm fine" HPI: 57 yo gentleman h/o seizure disorder, recently discharged from [facility], on steroids for an infection, presents after a seizure. Per the medics, "He was at a restaurant, and had a grand mal tonic clonic seizure... lasted about 8 minutes.... He had been drinking earlier today." He did not hit his head. He shares that he has been taking all of his medications. He denies drinking or drugs. He notes right sided reproducible chest wall pain. Past History Medical History Any Pertinent Medical History? 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 Hx Contributory? No Review of Systems Review of Systems Constitutional: Reports: no symptoms. EENTM: Reports: no symptoms. Respiratory: Reports: no symptoms. Cardiovascular: Reports: no symptoms. GI: Reports: no symptoms. Genitourinary: Reports: no symptoms. Musculoskeletal: Reports: no symptoms. Skin: Reports: no symptoms. Neurological/Psychological: Reports: no symptoms. Hematologic/Endocrine: Reports: no symptoms. Immunologic/Allergic: Reports: no symptoms. All Other Systems: Reviewed and Negative Physical Exam Physical Exam General Appearance: well developed/nourished, no apparent distress Comments: Review of Systems - except as otherwise noted in HPI Physical Exam Physical Exam General Appearance: well developed/nourished, no apparent distress Head: atraumatic, normal appearance Eyes: Bilateral: normal appearance. Ears, Nose, Throat: normal pharynx, normal ENT inspection Neck: normal inspection, supple, full range of motion Respiratory: normal breath sounds, chest mild tenderness at right lateral rib cage, no respiratory distress, quiet respiration, lungs clear Cardiovascular: regular rate/rhythm Gastrointestinal: normal bowel sounds, soft, non-tender, no organomegaly Back: normal inspection, normal range of motion Extremities: normal inspection, normal capillary refill, normal range of motion, no edema Neurologic/Psych: no motor/sensory deficits, awake, alert, oriented x 3 Skin: intact, normal color, warm/dry Core Measures ACS in differential dx? No CVA/TIA Diagnosis No Sepsis Present: No Sepsis Focused Exam Completed? No Progress Differential Diagnosis: seizure vs alcohol induced seizure vs pseudoseizure vs other. Plan of Care: Orders Procedure Date/time Status URINE DRUG SCREEN FOR ER ONLY 12/24 1949 Complete TROPONIN LEVEL 12/24 1949 Complete PROLACTIN 12/24 1949 Complete LIPASE 12/24 1949 Complete HEPATIC FUNCTION PANEL 12/24 1949 Complete ETHANOL 12/24 1949 Complete CBC WITHOUT DIFFERENTIAL 12/24 1949 Complete BASIC METABOLIC PANEL 12/24 1949 Complete AMYLASE 12/24 1949 Complete EKG 12/24 1949 Active Laboratory Tests 12/24/172024: Serum Alcohol 242.0 12/24/172024: Anion Gap 15, Estimated GFR > 60, BUN/Creatinine Ratio 9.1, Glucose 105 H, Calcium 8.8, Total Bilirubin 0.3, Direct Bilirubin 0.2, AST 33, ALT 58, Alkaline Phosphatase 58, Troponin I < 0.01, Total Protein 6.7, Albumin 4.1, Amylase 121 H, Lipase 262, Prolactin 16.4, CBC w Diff NO MAN DIFF REQ, RBC 3.83 L, MCV 101.1 H, MCH 34.5 H, MCHC 34.1, RDW 14.2, MPV 7.3 L, Gran % 55.3, Lymphocytes % 31.6, Monocytes % 11.1 H, Eosinophils % 1.4, Basophils % 0.6, Absolute Granulocytes 3.6, Absolute Lymphocytes 2.1, Absolute Monocytes 0.7 H, Absolute Eosinophils 0.1, Absolute Basophils 0, Urine Opiates Screen < 100, Methadone Screen < 40, Barbiturate Screen < 60, Ur Phencyclidine Scrn < 6.00, Amphetamines Screen < 100, U Benzodiazepines Scrn < 85, Urine Cocaine Screen < 50, Urine Cannabis Screen < 5.00 Diagnostic Imaging: Viewed by Me: Radiology Read. Discussed w/RAD: Radiology Read. CXR Impression: PATIENT: SIERRA THOMPSON PRESENT AGE: 57 PATIENT ACCOUNT NO: [id number] : 60 LOCATION: [facility] ORDERING PHYSICIAN: Usman Washington MD SERVICE DATE: 12/24/17 EXAM TYPE: RAD - XRY-PORTABLE CHEST XRAY EXAMINATION: XR PORTABLE CHEST CLINICAL INFORMATION: Seizures. COMPARISON: Chest x-ray 10/29/2017 TECHNIQUE: Portable frontal view of the chest was obtained. 7:56 PM FINDINGS: Lungs are clear. No pulmonary vascular congestion. There is no pleural effusion. The heart size is normal. The cardiac and mediastinal contours are normal. There are calcifications of the thoracic aorta. There are multilevel degenerative changes of dorsal spine. IMPRESSION: Unremarkable examination. DICTATED BY: Horacio Kerns MD DATE/TIME DICTATED:12/24/172024 CAD MANAGER:SINA DATE/TIME TRANSCRIBED:12/24/172024 CONFIDENTIAL, DO NOT COPY WITHOUT APPROPRIATE AUTHORIZATION. <Electronically signed in Other Vendor System> SIGNED BY: Horacio Kerns MD 12/24/172028 Initial ED EKG: sinus, no acute changes. Departure Departure Disposition: HOME OR SELF CARE Condition: Stable Clinical Impression Primary Impression: Seizure Secondary Impressions: Alcohol intoxication Referrals: Claudia Whipple APRN (PCP/Family) Departure Forms: Customer Survey General Discharge Information Comments pt expressed wish to go home.... he is going home in the company of his family. Close follow up advised.
--- NOTE | 2017-12-24 20:29 | RADIOLOGY REPORT ---
EXAMINATION: XR PORTABLE CHEST CLINICAL INFORMATION: Seizures. COMPARISON: Chest x-ray 10/29/2017 TECHNIQUE: Portable frontal view of the chest was obtained. 7:56 PM FINDINGS: Lungs are clear. No pulmonary vascular congestion. There is no pleural effusion. The heart size is normal. The cardiac and mediastinal contours are normal. There are calcifications of the thoracic aorta. There are multilevel degenerative changes of dorsal spine. IMPRESSION: Unremarkable examination.
[2017-12-24 20:39] LABS: ABSOLUTE BASOPHIL COUNT 0 /CUMM (0.0-0.2); ABSOLUTE EOSINOPHIL COUNT 0.1 /CUMM (0.0-0.7); ABSOLUTE GRANULOCYTE CT 3.6 /CUMM (1.4-6.5); ABSOLUTE LYMPH COUNT 2.1 /CUMM (1.2-3.4); ABSOLUTE MONOCYTE COUNT 0.7 /CUMM (0.10-0.60); BASOPHIL % 0.6 % (0.0-2.0); EOSINOPHIL % 1.4 % (0-5); GRANULOCYTE % 55.3 % (42.2-75.2); HEMATOCRIT 38.7 % (42-52); MEAN CORPUSCULAR HGB 34.5 PG (27.0-31.0); MEAN CORPUSCULAR HGB CONC 34.1 G/DL (33.0-37.0); MEAN CORPUSCULAR VOLUME 101.1 FL (80.0-94.0); MEAN PLATELET VOLUME 7.3 FL (7.4-10.4); PLATELET COUNT 275 /CUMM (130-400); RBC DISTRIBUTION WIDTH 14.2 % (11.5-14.5); RED BLOOD CELL CT 3.83 /CUMM (4.70-6.10); WHITE BLOOD CELL COUNT 6.6 /CUMM (4.8-10.8)
[2017-12-24 21:36] VITALS: BP 126/71
== END 2017-12-24 21:56 ==
LOC: ERH 19:41
PROVIDERS: Pediatrics
DX: R56.9 Unspecified convulsions (principal); F10.129 Alcohol abuse with intoxication, unspecified
CPT/HCPCS: 71045; 80307; 93005; 93010; G0480

== ENCOUNTER 2018-01-02 21:02 | Emergency (ER) | payer OTHER ==
[2018-01-02 21:11] VITALS: BP 109/69
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
--- NOTE | 2018-01-02 22:04 | RADIOLOGY REPORT ---
EXAMINATION: XR CHEST CLINICAL INFORMATION: Chest pain. COMPARISON: 12/24/2017 TECHNIQUE: PA and lateral views of the chest were obtained. FINDINGS: Lungs are clear. No consolidation, pneumothorax, or pleural effusion. Cardiac and mediastinal contours are normal. Pulmonary vasculature is unremarkable. Trachea is midline. Confluent bridging ossification of anterior longitudinal ligament is indicative of diffuse idiopathic skeletal hyperostosis. IMPRESSION: No acute pulmonary findings.
[2018-01-02 22:34] LABS: ABSOLUTE BASOPHIL COUNT 0 /CUMM (0.0-0.2); ABSOLUTE EOSINOPHIL COUNT 0.1 /CUMM (0.0-0.7); ABSOLUTE GRANULOCYTE CT 7.4 /CUMM (1.4-6.5); ABSOLUTE MONOCYTE COUNT 0.8 /CUMM (0.10-0.60); BASOPHIL % 0.3 % (0.0-2.0); EOSINOPHIL % 0.7 % (0-5); GRANULOCYTE % 71.4 % (42.2-75.2); MEAN CORPUSCULAR HGB 34.4 PG (27.0-31.0); MEAN CORPUSCULAR HGB CONC 33.8 G/DL (33.0-37.0); MEAN CORPUSCULAR VOLUME 101.8 FL (80.0-94.0); MEAN PLATELET VOLUME 7.8 FL (7.4-10.4); PLATELET COUNT 339 /CUMM (130-400); RBC DISTRIBUTION WIDTH 13.8 % (11.5-14.5); RED BLOOD CELL CT 3.63 /CUMM (4.70-6.10); WHITE BLOOD CELL COUNT 10.4 /CUMM (4.8-10.8)
== END 2018-01-02 23:00 | disposition left against medical advice (07) ==
LOC: ERH 21:02
PROVIDERS: Physician Assistant Medical
DX: F10.129 Alcohol abuse with intoxication, unspecified (principal); S29.9XXA Unspecified injury of thorax, initial encounter; R07.9 Chest pain, unspecified; R41.82 Altered mental status, unspecified; Y04.0XXA Assault by unarmed brawl or fight, initial encounter
CPT/HCPCS: 71046; 80307; 93005; 93010; G0480